=== PATIENT | male | born 1940 | race Caucasian/White ===

== ENCOUNTER 2017-12-23 10:00 | Emergency (ER) | payer MEDICARE ==
[2017-12-23 10:37] LABS: #Basophils 0.1 thou/uL (0.0-0.2); #Eosinphils 0.4 thou/uL (0.0-0.7); #Lymphocytes 0.9 thou/uL (1.20-3.40); #Monocytes 1.1 thou/uL (0.11-0.59); #Neutrophils 12.4 thou/uL (1.40-6.50); %Basophils 0.9 % (0.0-1.0); %Eosinophils 2.6 % (0.0-10.0); %Lymphocytes 6.1 % (21.0-51.0); %Monocytes 7.3 % (0.0-10.0); Hemoglobin 10.8 g/dL (14.0-18.0); Mean Corpuscular HGB CONC 33.9 g/dL (32.0-36.0); Mean Corpuscular Hemoglobin 30.1 pg (27.0-31.0); Mean Corpuscular Volume 88.7 fl (80.0-94.0); Mean Platelet Volume 6.6 fL (7.4-10.4); Platelet Count 194 thou/uL (130-400); RBC Distribution Width 12.8 % (11.5-14.5); Red Blood Cell (RBC) Count 3.58 mill/uL (4.70-6.10); White Blood Cell (WBC) Count 14.9 thou/uL (4.8-10.8)
[2017-12-23 10:45] LABS: PTT 27.7 SEC (22.9-36.1)
[2017-12-23 10:46] LABS: INR-International Normal Ratio 1.1
[2017-12-23 10:46] LABS: pH (venous) 7.39 (7.35-7.45)
[2017-12-23 10:48] LABS: Base Excess 0.2 mEq/L (-2 - +2)
[2017-12-23 10:49] LABS: Hemoglobin (Hb) 11.3 g/dL (12.6-17.4)
[2017-12-23 10:55] LABS: ALT (SGPT) 14 U/L (8-55); AST (SGOT) 11 U/L (5-34); Albumin 3.5 g/dL (3.4-4.8); Alkaline Phosphatase 57 U/L (40-150); Anion Gap 14 mmol/L (10-20); BUN (Urea Nitrogen) 31 mg/dL (8.4-25.7); Bilirubin, Total 0.6 mg/dL (0.2-1.2); Calc. Creatinine Clearance 0 mL/min (70-130); Calcium 9.5 mg/dL (7.8-10.44); Carbon Dioxide 22 mmol/L (23-31); Chloride 107 mmol/L (98-107); Estimated GFR-MDRD 43; Globulin 3.2 g/dL (2.4-3.5); Glucose 90 mg/dL (83-110); Magnesium 2.1 mg/dL (1.6-2.6); Potassium 4.4 mmol/L (3.5-5.1); Protein, Total 6.7 g/dL (5.8-8.1); Sodium 139 mmol/L (136-145)
[2017-12-23 10:57] LABS: CKMB 1.7 ng/mL (0-6.6); Troponin I 0.018 ng/mL (< 0.028)
[2017-12-23 11:00] LABS: D-Dimer Test 1.8 *mcg/mL (0.27-0.43)
[2017-12-23 11:59] LABS: Bilirubin Moderate (Negative); Blood, Urine Negative (Negative); Glucose, Urine (Dipstick) Negative (Negative); Leukocyte Negative (Negative); Nitrite Negative (Negative); Protein, Urine (Dipstick) Trace mg/dL (Neg-Trace)
[2017-12-23 12:00] LABS: Clarity Hazy (Clear)
[2017-12-23 12:06] LABS: Specific Gravity, Urine 1.026 (1.002-1.036)
[2017-12-23 12:08] LABS: Amphetamine Not Detected (NotDetected); Barbiturates Screen Not Detected (NotDetected); Benzodiazepine Screen Detected (NotDetected); Cocaine Metabolite Screen Not Detected (NotDetected); Methadone Not Detected (NotDetected); Methamphetamine Not Detected (NotDetected); Opiate Screen Not Detected (NotDetected); Oxycodone Screen Not Detected (NotDetected); Phencyclidine (PCP) Not Detected (NotDetected); THC/Cannabinoid Screen Not Detected (NotDetected); Tricyclic Screen Not Detected (NotDetected)
[2017-12-23 12:09] LABS: Medtox Control Line Valid? VALID (VALID)
--- NOTE | 2017-12-23 12:26 | CT ---
CT HEAD WITHOUT CONTRAST: Technique: Multiple axial tomograms were obtained through the head without IV enhancement. History: Fall with dizziness and metal status change. FINDINGS: Mild cortical volume loss. Moderate chronic ischemic white matter change. Sinuses and mastoids are ae rated. There is a mucous retention in the left maxillary sinus. No hemorrhage, mass, or infarct ident ified. IMPRESSION: Chronic changes noted as described. No evidence of acute hemorrhage. POS: [facility]
--- NOTE | 2017-12-23 12:32 | CT ---
CT CERVICAL SPINE WITH CORONAL AND SAGITTAL REFORMATIONS: HISTORY: Fall. Neck pain. FINDINGS: Degenerative changes are present in the cervical spine. There is fusion at the C2-C3 level. No acut e fracture is seen. There is minimal anterolisthesis of C5 over C6. There is calcification of the p osterior longitudinal ligament. POS: [facility]
--- NOTE | 2017-12-23 12:35 | RAD ---
RIGHT FEMUR TOTAL OF 3 VIEWS: HISTORY: Fall with injury to right lower extremity. FINDINGS: There is evidence of a fracture involving the greater trochanteric of the proximal right femur. I ca nnot exclude intertrochanteric extension through the base of the femoral neck. No other abnormality identified. IMPRESSION: Trochanteric fracture proximal right femur. POS: [facility]
--- NOTE | 2017-12-23 12:35 | RAD ---
AP PELVIS: Indication: Decreased range of motion of the right hip. Comparison: None. FINDINGS: There is suspicion for possible basicervical right femoral neck fracture. This is difficult to defini tely demonstrate. Would recommend dedicated right hip radiograph to evaluate this region. No addition al acute osseous abnormality is evident. IMPRESSION: Findings suspicious for right basicervical femoral neck fracture. Recommend a dedicated right hip rad iograph for further evaluation. No additional acute osseous abnormality is evident. There are scatter ed vascular calcifications seen within the soft tissues of the pelvis. POS: [facility]
--- NOTE | 2017-12-23 12:36 | RAD ---
RIGHT TIBIA AND FIBULA: History: Fall with injury to right lower extremity. FINDINGS/IMPRESSION: Mild degenerative change at knee and ankle. No acute fracture identified. POS: [facility]
--- NOTE | 2017-12-23 12:36 | RAD ---
RIGHT KNEE FOUR VIEWS: History: Fall with injury to right knee. FINDINGS: Mild degenerative change at the knee. No evidence of fracture. No evidence of joint effusion. IMPRESSION: No acute fracture identified. POS: [facility]
--- NOTE | 2017-12-23 12:37 | RAD ---
PORTABLE CHEST ONE VIEW: Date: 12-23-17 Time: 10:38 a.m. History: Hypoxia. FINDINGS/IMPRESSION: The heart is enlarged. Pulmonary interstitial markings are seen bilaterally. No pneumothoraces, lobar consolidation, or large effusions identified. POS: [facility]
== END 2017-12-23 18:36 | disposition short-term general hospital (02) ==
LOC: MADERS 10:00
DX: T40.4X1A Poisoning by other synthetic narcotics, accidental (unintentional), initial encounter (principal); S72.114A Nondisplaced fracture of greater trochanter of right femur, initial encounter for closed fracture; G30.9 Alzheimer's disease, unspecified; R09.02 Hypoxemia; Z79.82 Long term (current) use of aspirin; Z79.899 Other long term (current) drug therapy; W19.XXXA Unspecified fall, initial encounter
CPT/HCPCS: 51701; 70450; 71045; 72125; 72170; 80053; 80306; 81003; 82553; 82805; 83605; 83735; 83880; 84484; 85025; 85379; 85610; 85730; 87040; 87086; 93005; 94760

== ENCOUNTER 2018-01-05 14:05 | Inpatient (IN) | payer MEDICARE, OTHER ==
[2018-01-05 14:40] VITALS: BMI 28.5
[2018-01-05 16:46] LABS: #Basophils 0.1 thou/uL (0.0-0.2); #Eosinphils 0.5 thou/uL (0.0-0.7); #Lymphocytes 1.7 thou/uL (1.20-3.40); #Monocytes 0.7 thou/uL (0.11-0.59); #Neutrophils 7.7 thou/uL (1.40-6.50); %Basophils 1.3 % (0.0-1.0); %Eosinophils 4.3 % (0.0-10.0); %Lymphocytes 15.5 % (21.0-51.0); %Monocytes 6.6 % (0.0-10.0); %Neutrophils 72.2 % (42.0-75.0); Hemoglobin 11.1 g/dL (14.0-18.0); Mean Corpuscular HGB CONC 32.5 g/dL (32.0-36.0); Mean Corpuscular Hemoglobin 29.4 pg (27.0-31.0); Mean Corpuscular Volume 90.4 fl (80.0-94.0); Mean Platelet Volume 6.4 fL (7.4-10.4); Platelet Count 315 thou/uL (130-400); RBC Distribution Width 13.2 % (11.5-14.5); Red Blood Cell (RBC) Count 3.78 mill/uL (4.70-6.10); White Blood Cell (WBC) Count 10.6 thou/uL (4.8-10.8)
[2018-01-05 17:01] LABS: ALT (SGPT) 28 U/L (8-55); AST (SGOT) 13 U/L (5-34); Albumin 3.5 g/dL (3.4-4.8); Alkaline Phosphatase 89 U/L (40-150); Anion Gap 14 mmol/L (10-20); BUN (Urea Nitrogen) 15 mg/dL (8.4-25.7); Bilirubin, Total 0.6 mg/dL (0.2-1.2); Calc. Creatinine Clearance 68 mL/min (70-130); Calcium 8.9 mg/dL (7.8-10.44); Carbon Dioxide 22 mmol/L (23-31); Chloride 107 mmol/L (98-107); Estimated GFR-MDRD 63; Globulin 3.2 g/dL (2.4-3.5); Glucose 90 mg/dL (83-110); Potassium 4.3 mmol/L (3.5-5.1); Protein, Total 6.7 g/dL (5.8-8.1); Sodium 139 mmol/L (136-145)
[2018-01-05] MEDS ORDERED: Diazepam 5 MG TAB PO PRN (17:44)
[2018-01-05] MEDS ORDERED: Thiamine HCl 200 MG/2 ML VIAL IM SCH (17:45)
[2018-01-05] MEDS ORDERED: Diazepam 5 MG TAB PO SCH (17:45)
--- NOTE | 2018-01-05 17:57 | RAD ---
RIGHT HIP TWO VIEWS: 01/05/18 HISTORY: 77-year-old male with history of fracture followup. COMPARISON: 12/23/17. FINDINGS: There is a displaced fracture of the greater trochanter of the right hip with some comminution. There appears to be more foreshortening and displacement when compared to the prior 12/23/17 study. IMPRESSION: Comminuted fracture greater trochanter of the right hip with more displacement than when compared to the prior study of 12/23/17. POS: [facility]
--- NOTE | 2018-01-05 17:59 | RAD ---
LEFT HIP TWO VIEWS: 01/05/18 HISTORY: 77-year-old male with left hip pain. COMPARISON: AP pelvis 12/23/17. There are some enthesophytic changes of the greater and lesser trochanters. No acute fracture or disl ocation. Left hip joint arthrosis. IMPRESSION: Degenerative changes without acute fracture or dislocation. POS: [facility]
--- NOTE | 2018-01-05 18:04 | RAD ---
FRONTAL RADIOGRAPH PELVIS 01/05/18 COMPARISON: 12/23/17. HISTORY: Fracture undergoing followup examination. FINDINGS: There is a comminuted obliquely oriented fracture involving the greater trochanter on the right. The largest fracture fragment demonstrates proximal distraction of approximately 8-9 mm which appears new . This is likely associated with muscular insertion. No widening of the sacroiliac joints of the pubi c symphysis. Neither femoral head appears dislocated. IMPRESSION: Comminuted fracture of the greater trochanter on the right with mild new proximal displacement. POS: [facility]
[2018-01-05] MEDS: traMADol HCl 50 MG TAB PO PRN (18:08)
[2018-01-05] MEDS: ALPRAZolam 0.25 MG TAB PO PRN (19:38)
[2018-01-05] MEDS: Citalopram 20 MG TAB PO SCH (19:38)
[2018-01-05] MEDS: Terazosin HCl 5 MG CAP PO SCH (19:39)
[2018-01-05] MEDS: Simvastatin 5 MG TAB PO SCH (19:39)
[2018-01-05 20:49] LABS: Bilirubin Small (Negative); Blood, Urine Negative (Negative); Clarity Clear (Clear); Glucose, Urine (Dipstick) Negative (Negative); Leukocyte Negative (Negative); Nitrite Negative (Negative); Protein, Urine (Dipstick) Trace mg/dL (Neg-Trace); Specific Gravity, Urine 1.015 (1.005-1.030); Urobilinogen > or = 8.0 mg/dL (0.2-1.0); pH, Urine 7.5 (5.0-9.0)
[2018-01-05] MEDS ORDERED: traMADol HCl 50 MG TAB PO SCH (21:00)
[2018-01-05] MEDS ORDERED: NAPROXEN SODIUM 440 MG PO SCH (21:00)
[2018-01-05 21:16] LABS: Bacteria/HPF None Seen HPF (None Seen); RBC/HPF 0-3 HPF (0-3); WBC/HPF 0-3 HPF (0-3)
[2018-01-05] MEDS: Acetaminophen/Codeine 30-300mg Tablet PO PRN (22:52)
[2018-01-06] MEDS ORDERED: Diazepam 5 MG TAB PO PRN
[2018-01-06] MEDS: cloNIDine 0.1 MG TAB PO PRN ×2 (00:06→20:10)
--- NOTE | 2018-01-06 00:07 | HP ---
DATE OF ADMISSION: 01/05/2018 ATTENDING: Dr. Finn. PRIMARY CARE PHYSICIAN: [place], [place]. REASON FOR ADMISSION: Persistent hip pain, deconditioning, general weakness. HISTORY OF PRESENT ILLNESS: Mr. Das is a 77-year-old male with multiple chronic medical conditions including dementia with behavioral disturbances, anxiety, BPH, dyslipidemia and chronic alcohol use. Patient was initially reported by the family to have an unwitnessed fall at home on . At that time, he was complaining of acute right low back/hip pain. Was initially seen in clinic that subsequently referred to [place] [facility] secondary to reported unintentional intake of his medications set for 4 days. Patient was complaining of right hip pain that he cannot bear weight on the right leg and is requiring significant assistance to ambulate after he had the fall. No other neurologic deficits reported. His vital signs at that time was initially with low blood pressure. Otherwise, remains awake and alert. Several x-rays including CT scans were obtained in the ER including cervical spine CT and spine with the brain, which were unremarkable except for the x-ray of the right femur, which was initially interpreted with trochanteric fracture of the proximal right femur involving the right greater trochanteric. There was also a finding that is suspicious of the right base cervical femoral neck fracture. Recommending a dedicated right hip radiograph for further evaluation. Patient was sent to [facility] in [place] where he was found to have comminuted fracture of the greater trochanteric without intertrochanteric extension, 5 mm proximal migration as well as myotendinous hemorrhage along the gluteus medius and minimus muscles. At that time, Dr Baez was contacted patient was deemed not a good candidate for surgical managemen. Ortho then recommended inpatient rehabilitation at [facility], but patient declined, went home AMA. Family reports that, by the time he got out of the car at home, the patient fell again ending up on the floor when seen by the family. At that time, there was no significant head trauma, shoulder pain, or cervical spine pain reported , but patient reports persistent right hip pain and right lower back pain thereafter. Patient stayed home for the rest of the last couple of weeks. Family reported that patient continues to complain of pain. could harly walk or get up and out of chair. He trying to walk using a walker. Patient was persistently asking for tramadol 3 times a day and naproxen 2 tablets 4 times a day, almost in a scheduled basis. Thus, family brought the patient back to the clinic today for further evaluation and possible skilled rehabilitation in [facility]. Family consisting of his spouse and son reported that they already had a long talk with the patient regarding this, and this time, the patient finally agreed to consider rehab, but not in [place] but only in [place]. Patient was then subsequently admitted to [facility] for acute pain management, deconditioning, and general weakness, status post fall. PAST MEDICAL HISTORY: Alzheimer's disease with behavioral disturbances, depression, anxiety, dyslipidemia, BPH, hypertension, and history of chronic alcoholism. PAST SURGICAL HISTORY: Bilateral cataract removal. Spouse reports some bone removal from the hip in the past, unknown or unconfirmed procedure. SOCIAL HISTORY: He has a significant history of chronic alcoholism. Patient has slowed down with his overall alcoholic intake lately since he has been having poor memory after the last hospitalization in 2014. Admits to drinking 1 -2 beers a day. Denies history of significant withdrawal syndrome. Denies tobacco use. Denies illicit drug use. ALLERGIES: No known medication allergies. HOME MEDICATIONS: Alprazolam 0.25 mg p.o. b.i.d. p.r.n., aspirin 325 mg p.o. daily, vitamin D3 at 1000 mg p.o. daily, Celexa 40 mg q.p.m., cyanocobalamin 1000 mcg p.o. daily, donepezil 10 mg p.o. daily, finasteride 5 mg p.o. daily, fish oil 1000 mg p.o. daily, memantine 10 mg p.o. b.i.d., multivitamins 1 tablet daily, simvastatin 5 mg p.o. at bedtime, terazosin 5 mg p.o. at bedtime, thiamine 100 mg p.o. daily, and tramadol 100 mg p.o. t.i.d. FAMILY HISTORY: Noncontributory. REVIEW OF SYSTEMS: General: Denies fever or chills. Reports general weakness and fatigue. HEENT: No acute visual changes or hearing changes. Respiratory: No shortness of breath or wheezing. No chronic cough or sputum production. Cardiac: No chest pain, leg edema, dyspnea on exertion, paroxysmal nocturnal dyspnea. Syncopal episode. Genitourinary: No dysuria or hematuria. Family reports increased frequency and nocturia lately. No gross hematuria, no incontinence. Positive for BPH. Musculoskeletal: Reports joint pain as per HPI. Denies joint swelling, redness, effusion. Neuro: No focal numbness, focal weakness, loss of consciousness, fixed tremors or seizures. Psych: Reports anxiety, depressive symptoms, denies hallucinations, insomnia. Skin: No rashes, no lesions, no pruritus, no jaundice. PHYSICAL EXAMINATION: VITAL SIGNS: Blood pressure 117/84, temperature 99.2, pulse 75, respirations 18 , O2 sats 90% on room air. GENERAL: The patient is awake, alert, oriented x2, a little off of date. Comfortable, not in acute distress. HEENT: Normocephalic, atraumatic. PERRL, Intact EOM. Anicteric sclerae. Oral mucosa is moist. No oral lesions. Tongue in the midline. No tremors. NECK: Supple. No LAD, no JVD, no bruit. Full range of motion, no swelling, no erythema. CHEST: Normal excursion, nonlabored breathing, no intercostal retractions. LUNGS: Good air movement. Clear to auscultation bilaterally. No rales, no crackles, no wheezing, no rhonchi. ABDOMEN: Obese, soft, normoactive bowel sounds, nondistended, nontender, no rebound, no guarding. Negative CVA tenderness bilaterally. EXTREMITIES: No edema, no cyanosis. BACK: No gross deformity. No scoliosis noted. Reports direct tenderness in the right hip/pelvis on palpation, no swelling, no erythema. EXTREMITIES: No edema, no cyanosis. Moves all extremities symmetrically. DTRs Nonfocal. DTRs 2+. Gait unsteady. Uses rolling walker. Reports pain on the right side upon weightbearing. PSYCHIATRIC: Appears calm with appropriate demeanor and affect. Co-operative, pleasant. ASSESSMENT: 1. Persistent right hip pain, status post fall. 2. Comminuted right intertrochanteric nondisplaced fracture, initially reported on 12/23/2017, status post fall at home. 3. Alzheimer's dementia with behavioral disturbances. 4. Hypertension. 5. Depression/anxiety. 6. Urinary frequency. 7. Benign prostatic hypertrophy without lower urinary tract obstructive symptoms. 8. General weakness, deconditioning. The patient was admitted to [facility] for pain management and possible rehabilitation secondary to deconditioning and general weakness noted after he had a fall. The patient was initially seen in the ER and was deemed a good candidate for inpatient rehabilitation. However, the patient declined. Patient now agrees to undergo rehabilitation, but only in [facility]. Routine labs or admitting lab works were ordered. We will continue current medications as modified per list. We will discontinue non-steroidal antiinflammatory drugs and start on Tylenol #3. We will continue tramadol on a p.r.n. basis. X-rays ordered as outpatient, unfortunately, was not done. We will proceed with a repeat x-ray of the hip and pelvis. Further recommendations depending on the results. We will hold off therapy evaluation until imaging study results are available. We will consider further ortho consult depending on the x-ray results. Deep venous thrombosis prophylaxis with compression stockings. Further recommendations depending on the hospital course. CODE STATUS: Reports FULL CODE. Family concurs. MTDD
[2018-01-06] MEDS: ALPRAZolam 0.25 MG TAB PO PRN ×2 (04:24→18:11)
[2018-01-06] MEDS: Folic Acid 1 MG TAB PO SCH (08:51)
[2018-01-06] MEDS: Fish Oil 1,000 MG CAP PO SCH (08:51)
[2018-01-06] MEDS: Aspirin 325 mg Enteric Coated Tablet PO SCH (08:52)
[2018-01-06] MEDS: Finasteride 5 MG TAB PO SCH (08:52)
[2018-01-06] MEDS: Donepezil HCl 10 MG TAB PO SCH (08:52)
[2018-01-06] MEDS: Multivit, Therapeutic 1 TAB PO SCH (08:52)
[2018-01-06] MEDS: Cyanocobalamin (Vitamin B-12) 1,000 MCG TAB PO SCH (08:52)
[2018-01-06] MEDS ORDERED: CRANBERRY PO SCH (09:00)
[2018-01-06] MEDS ORDERED: ASCORBIC ACID PO SCH (09:00)
[2018-01-06] MEDS ORDERED: Magnesium Oxide 400 MG TAB PO SCH (09:00)
[2018-01-06] MEDS: traMADol HCl 50 MG TAB PO PRN (15:21)
[2018-01-06] MEDS: Acetaminophen/Codeine 30-300mg Tablet PO PRN (20:08)
[2018-01-06] MEDS: Terazosin HCl 5 MG CAP PO SCH (20:09)
[2018-01-06] MEDS: Citalopram 20 MG TAB PO SCH (20:09)
[2018-01-06] MEDS: Simvastatin 5 MG TAB PO SCH (20:09)
[2018-01-07] MEDS: Fish Oil 1,000 MG CAP PO SCH (08:30)
[2018-01-07] MEDS: Finasteride 5 MG TAB PO SCH (08:30)
[2018-01-07] MEDS: Folic Acid 1 MG TAB PO SCH (08:30)
[2018-01-07] MEDS: Aspirin 325 mg Enteric Coated Tablet PO SCH (08:30)
[2018-01-07] MEDS: Donepezil HCl 10 MG TAB PO SCH (08:30)
[2018-01-07] MEDS: Cyanocobalamin (Vitamin B-12) 1,000 MCG TAB PO SCH (08:30)
[2018-01-07] MEDS: Multivit, Therapeutic 1 TAB PO SCH (08:30)
[2018-01-07] MEDS: ALPRAZolam 0.25 MG TAB PO PRN ×2 (11:46→22:23)
[2018-01-07] MEDS: Citalopram 20 MG TAB PO SCH (20:06)
[2018-01-07] MEDS: Simvastatin 5 MG TAB PO SCH (20:07)
[2018-01-07] MEDS: Terazosin HCl 5 MG CAP PO SCH (20:07)
[2018-01-07] MEDS: Acetaminophen/Codeine 30-300mg Tablet PO PRN (20:08)
[2018-01-08] MEDS: cloNIDine 0.1 MG TAB PO PRN (04:10)
[2018-01-08 08:31] VITALS: BP 120/59; TEMP 97.1
[2018-01-08] MEDS: Cyanocobalamin (Vitamin B-12) 1,000 MCG TAB PO SCH (08:58)
[2018-01-08] MEDS: Aspirin 325 mg Enteric Coated Tablet PO SCH (08:58)
[2018-01-08] MEDS: Finasteride 5 MG TAB PO SCH (08:59)
[2018-01-08] MEDS: Fish Oil 1,000 MG CAP PO SCH (08:59)
[2018-01-08] MEDS: Multivit, Therapeutic 1 TAB PO SCH (08:59)
[2018-01-08] MEDS: Folic Acid 1 MG TAB PO SCH (08:59)
[2018-01-08] MEDS: Donepezil HCl 10 MG TAB PO SCH (08:59)
[2018-01-08] MEDS: Acetaminophen/Codeine 30-300mg Tablet PO PRN (10:05)
--- NOTE | 2018-01-08 21:06 | DIS ---
DATE OF ADMISSION: 01/05/2018 DATE OF DISCHARGE: 01/08/2018 ATTENDING: Dr. Finn, PCP in [place] in [place]. REASON FOR ADMISSION: Persistent hip pain, deconditioning, general weakness status post fall at home. FINAL DIAGNOSES: 1. Comminuted fracture of the greater trochanteric on the right with mild new proximal displacement. 2. Status post fall at home. 3. Acute right hip pain, persistent secondary to fall. 4. Physical deconditioning. 5. General weakness. 6. Alzheimer's dementia. SECONDARY DIAGNOSES: Hypertension, chronic alcohol use, BPH, depression and anxiety, dyslipidemia. CODE STATUS: FULL CODE. DISPOSITION: Home. CONDITION ON DISCHARGE: Stable. MEDICATIONS: Tylenol #3 one tab q.4 hours p.r.n., alprazolam 0.25 mg p.o. b.i.d. p.r.n., aspirin 325 mg p.o. daily, vitamin D3 1000 units p.o. daily, citalopram 40 mg p.o. q.p.m., clonidine 0.1 mg p.o. q.6 p.r.n., cyanocobalamin 1000 mcg p.o. daily, donepezil 10 mg p.o. daily, finasteride 5 mg p.o. daily, fish oil 1000 mg p.o. daily, folic acid 1 mg p.o. daily, memantine 10 mg p.o. b.i.d., multivitamins 1 tab daily, simvastatin 5 mg p.o. at bedtime, terazosin 5 mg p.o. at bedtime, thiamine 100 mg p.o. daily, tramadol 100 mg p.o. t.i.d. p.r.n. Discharged home with family per request. DIET: Low salt, low fat. ACTIVITIES: To use rolling walker at all times. Patient needs 24/7 supervision secondary to dementia. Fall precautions. FOLLOW UP: With Dr. Finn in 1-2 weeks or sooner with concerns. Follow up with [place] PCP as previously scheduled. ER warnings. HISTORY OF PRESENT ILLNESS AND HOSPITAL COURSE: Mr. Das is a 77-year-old male with significant history of Alzheimer's dementia associated with behavioral disturbances, depression, anxiety, hypertension, BPH, and chronic alcohol use. The patient had an unwitnessed fall at home on 2017. He was found to have a comminuted closed trochanteric fracture of the proximal right femur involving the right greater trochanteric by xray And CT scan of the hip and pelvis. He was deemed not a surgical candidate per Ortho. Recommendations to proceed with inpatient rehabilitation in [facility] from the ER. The patient went AMA and went back to home instead. He was treated with tramadol and naproxen at home, but continued to complain of persistent right hip pain. Pain is best noted with weightbearing and when walking or changing positions. He was reported by the family to being deconditioned and got frustrated because he cannot walk very much and pain is not completely controlled. After the family had a long talk with the patient, the patient then consulted back and seen in the clinic 01/05/2018. Patient reports he could not walk much as he can due to pain. He uses the rolling walker to ambulate. After further discussion with the patient and family consisting of his and son, Tcaho, the patient then agreed to have rehabilitation in [facility]. Repeat x-ray of the pelvis upon admission showed comminuted fracture of the greater trochanteric on the right with mild new proximal displacement. Telephone consult was made with Dr. Baez who initially had seen the x-rays from the ER upon initial presentation. Dr. Baez believed x-ray findings is not significant and does not require surgical management. Ortho recommended conservative management only and weightbearing as tolerated. The patient underwent rehabilitation in [facility] after cleared by Ortho. Rehab course was not completed as patient has been continuously complaining that nobody works with him and we are not doing anything for him in the hospital. The patient's stayed with the patient in the room all the time 02/03 with patient and helped continuously reminding the patient of what the therapy and the nurses are doing with him in the hospital. The patient continued to have confusion with poor memory. He has a very poor short-term memory that affected his decision to stay for rehabilitation. After a lengthy discussion with the family, decided to go home on 01/08/2018 with home health. DME was arranged prior to discharge per request. The patient will follow up in the clinic and highly recommended to have a series of x-rays to confirm resolution of the fracture. Of note, during this hospitalization, patient did not manifest significant withdrawal symptoms except for episodes of BP elevation usually at night that requires p.r.n. clonidine treatment. Vital signs prior to discharge; blood pressure 148/70, temperature 98.2, heart rate 57, respiration 18, O2 saturation 97% on room air, weight 198 pounds and 9 ounces. Time spent in this discharge in examining the patient and coordinating care is 32 minutes. [facility]
== END 2018-01-08 10:10 | disposition home or self-care (01) | DRG 560 ==
LOC: MADMS 14:05
PROVIDERS: ADMIT Family Medicine; ATTEND Family Medicine
DX: S72.144D Nondisplaced intertrochanteric fracture of right femur, subsequent encounter for closed fracture with routine healing (principal); F02.81 Dementia in other diseases classified elsewhere, unspecified severity, with behavioral disturbance; F41.9 Anxiety disorder, unspecified; N40.0 Benign prostatic hyperplasia without lower urinary tract symptoms; E78.5 Hyperlipidemia, unspecified; G30.9 Alzheimer's disease, unspecified; F32.9 Major depressive disorder, single episode, unspecified; F10.20 Alcohol dependence, uncomplicated; R35.0 Frequency of micturition; J44.9 Chronic obstructive pulmonary disease, unspecified; R09.02 Hypoxemia; R26.81 Unsteadiness on feet; I11.0 Hypertensive heart disease with heart failure; I50.9 Heart failure, unspecified
CPT/HCPCS: 36415; 72170; 80053; 81001; 85025; G8987-GO-CK; G8988-GO-CH

== ENCOUNTER 2020-01-30 15:40 | Inpatient (IN) | payer MEDICARE, OTHER ==
[2020-01-30] MEDS ORDERED: traMADol HCl 50 MG TAB PO PRN (17:20)
[2020-01-30] MEDS: Acetaminophen 500 MG TAB PO SCH (18:12)
[2020-01-30] MEDS: ALPRAZolam 0.25 MG TAB PO PRN (18:13)
[2020-01-30] MEDS: Terazosin HCl 5 MG CAP PO SCH (20:45)
[2020-01-30] MEDS: Simvastatin 5 MG TAB PO SCH (20:45)
[2020-01-30] MEDS: Aspirin 325 MG TAB PO SCH (20:45)
[2020-01-31] MEDS: Acetaminophen 500 MG TAB PO SCH ×4 (01:05→17:14)
[2020-01-31] MEDS: ALPRAZolam 0.25 MG TAB PO PRN ×2 (05:35→21:35)
[2020-01-31 05:53] LABS: #Basophils 0.2 thou/uL (0.0-0.2); #Eosinphils 0.8 thou/uL (0.0-0.7); #Lymphocytes 1.6 thou/uL (1.20-3.40); #Monocytes 0.8 thou/uL (0.11-0.59); #Neutrophils 9.1 thou/uL (1.40-6.50); %Basophils 1.4 % (0.0-1.0); %Eosinophils 6.2 % (0.0-10.0); %Lymphocytes 12.5 % (21.0-51.0); %Monocytes 6.4 % (0.0-10.0); %Neutrophils 73.6 % (42.0-75.0); Hemoglobin 7.5 g/dL (14.0-18.0); Mean Corpuscular HGB CONC 31.8 g/dL (32.0-36.0); Mean Corpuscular Hemoglobin 30.5 pg (27.0-31.0); Mean Corpuscular Volume 95.8 fL (78.0-98.0); Mean Platelet Volume 7.2 fL (7.4-10.4); Platelet Count 259 thou/uL (130-400); RBC Distribution Width 13.2 % (11.5-14.5); Red Blood Cell (RBC) Count 2.46 mill/uL (4.70-6.10); White Blood Cell (WBC) Count 12.4 thou/uL (4.8-10.8)
[2020-01-31 06:03] LABS: Anion Gap 12 mmol/L (10-20); BUN (Urea Nitrogen) 23 mg/dL (8.4-25.7); Calc. Creatinine Clearance 83 mL/min (70-130); Carbon Dioxide 25 mmol/L (23-31); Chloride 115 mmol/L (98-107); Estimated GFR-MDRD 88; Glucose 93 mg/dL (83-110); Potassium 3.9 mmol/L (3.5-5.1); Sodium 148 mmol/L (136-145)
[2020-01-31] MEDS: Donepezil HCl 10 MG TAB PO SCH (08:42)
[2020-01-31] MEDS: traMADol HCl 50 MG TAB PO PRN (08:43)
[2020-01-31] MEDS: Citalopram 20 MG TAB PO SCH (08:44)
[2020-01-31] MEDS: Thiamine 100 MG TAB PO SCH (08:44)
[2020-01-31] MEDS: Multivit, Therapeutic 1 TAB PO SCH (08:45)
[2020-01-31] MEDS: risperiDONE 0.5 MG TAB PO SCH (08:45)
[2020-01-31] MEDS: Cyanocobalamin (Vitamin B-12) 1,000 MCG TAB PO SCH (08:45)
[2020-01-31] MEDS: Polyethylene Glycol 3350 17 GM Packet PO SCH (08:45)
[2020-01-31] MEDS: Finasteride 5 MG TAB PO SCH (08:45)
[2020-01-31] MEDS ORDERED: CRANBERRY FRUIT 4200 MG PO SCH (09:00)
--- NOTE | 2020-01-31 20:00 | HP ---
ORTHOPEDIC PHYSICIAN: Irving Lisa MD HISTORY OF PRESENT ILLNESS: Mr. Das is an 79-year-old male with significant history of dementia, unsteadiness of gait, and history of falls at home secondary to confusion and poor safety awareness. The patient had another fall at home on 01/26/2020, and was sent to [place] [facility] for further evaluation. The patient's family reported to the EMS that they found the patient to the ground last night. They are unsure of the cause of the fall. They reported trying to get him up last night, but were unable to. Subsequently, they allowed him to sleep on the floor overnight. The patient was reported by the family that over the past week, the patient's condition has significantly declined. The patient has a lot of tremors, which has been chronic and very confused, uncooperative for the most parts. Upon further evaluation in the ER, the patient found to have fracture of left intertrochanteric femur. The patient had underwent trochanteric fixation nail, left intertrochanteric femur, which was done by Dr. Lisa. The patient has had a history of TIA in 2014 and this was ruled out. His CT of the brain showed no evidence of acute intracranial process. There was no significant neurologic deficits noted over the course. Baseline lab showed WBC of 7.8, hemoglobin of 8.7, hematocrit 25.6, and platelet of 217 on 01/26/2020. Postoperatively, the patient's hemoglobin stayed at 7.5 to 7.8. Prior to discharge on 01/29/2020, his hemoglobin has stabilized at 7.5 and hematocrit of 23.4 with WBC of 12.2. The patient was subsequently transferred to [facility] on 01/30/2020 for purposes of skilled rehabilitation. When he was admitted on 01/30/2020, the patient was very confused. He was screaming and fighting with the staff. He declined to be helped and wanting to get up and out of bed with very poor safety awareness. His son, Tacho Das, was present at the time of admission. Son reports that the patient has been doing fine in the hospital, but with intermittent confusion and behavioral disturbances like this, mostly notable in late afternoon or evening. Otherwise, they were not told of any other behavioral disturbances. We were able to settle down the patient with reorientation and cuing. He finally settled down and cooperated. His current diet was downgraded to pureed with nectar thickened from the hospital prior to discharge. He was apparently evaluated by Speech Therapy for swallowing issues and we will continue the current diet as ordered. This was discussed with son, who is unaware of this new symptoms, but concurs with the plan. PAST MEDICAL HISTORY: Dementia, Alzheimer's late onset, history of TIA, hypertension, history of previous chronic alcoholic use, anxiety, BPH, hyperlipidemia, and depression. History of unsteadiness and falls at home. PAST SURGICAL HISTORY: Hip surgery. SOCIAL HISTORY: The patient lives at home with his . She and her family help to take care of him with his son. He is supposed to walk with a walker, but the patient refuses for the most part. Per son, the patient has not been drinking alcohol lately. ALLERGIES: NO KNOWN ALLERGIES. CURRENT MEDICATIONS: 1. Acetaminophen. 2. Citalopram 40 mg p.o. daily. 3. Aspirin 325 mg p.o. at bedtime. 4. Cyanocobalamin 1000 mg p.o. daily. 5. Donepezil 10 mg p.o. daily. 6. Finasteride 5 mg p.o. daily. 7. Simvastatin 5 mg p.o. at bedtime. 8. Terazosin 5 mg p.o. at bedtime. 9. Thiamine 100 mg p.o. daily. 10. Tramadol 50 mg q.6 hours 1 to 2 p.r.n. REVIEW OF SYSTEMS: Unobtainable secondary to cognitive impairment. Son reports history of confusion, visual and auditory hallucinations lately at home. PHYSICAL EXAMINATION: VITAL SIGNS: Blood pressure 186/80, temperature 98.3, pulse 61, respiration 18 , and O2 sats 95% on room air. GENERAL: The patient is lying in the portion of the bed with the head resting on the bed rail, half naked, just wearing his diaper, as he refuses to be dressed up. He is not in distress. No signs of discomfort. HEENT: Normocephalic and atraumatic. PERRL. Intact EOM. Anicteric sclerae. Oral mucosa is moist. NECK: Supple. No LAD. CHEST: Normal excursion. Nonlabored breathing. LUNGS: Clear to auscultation bilaterally. CARDIAC: RRR. Normal S1 and S2. ABDOMEN: Flat, soft. Normoactive bowel sounds. Nondistended and nontender. Negative CVA tenderness bilaterally. EXTREMITIES: No edema. No cyanosis. SKIN: Postoperative site in the left lateral thigh is intact. Jany in place. No denice-wound erythema. No denice-wound edema. No drainage. The surrounding skin more than a centimeter has bruises on the lateral thigh. NEURO: Globally confused, talkative. Spontaneous speech and unsteady gait. Moves extremities symmetrically. PSYCH: Appears disheveled, uncooperative with us for the most part, but able to settle down subsequently and cooperated some. He was happy when transferred to a recliner. ASSESSMENT: 1. Status post fall, unknown etiology with prolonged down time. 2. Left intertrochanteric femur fracture, fall sequelae. 3. Left trochanteric f fixation nail on 01/27/2020. 4. Anemia of acute postoperative blood loss. 5. Alzheimer's, late onset. 6. 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 7. Depression and anxiety. 8. Dysphagia. 9. Hypertension. 10. Dyslipidemia. 11.Benign prostatic hyperplasia. 12. Unsteady gait. 13. At risk for fall, history of falling. 14. History of chronic alcohol use. PLAN: 1. The patient is admitted to [facility] for rehab. Refer to PT, OT , and Speech Therapy. 2. We will continue current medications, pain management. 3. Supportive medical management and close monitoring of the patient's behavior. He is definitely at risk for falling secondary to very poor safety awareness and confusion. 4. Lengthy discussion with the family as represented by his son, Tacho Das. Advance care planning was discussed. Per son, the patient is fFULL CODE We will also discuss possibility of disposition to a long-term care facility, dementia facility. Son is open to this and will discuss this further with his mother/patient's . In the meantime, we will continue rehab and SNF. Barriers to rehab includes confusion/cognitive impairment. ESTIMATED LENGTH OF STAY: 3 to 4 weeks. Job ID: [id number] MTDD
[2020-01-31] MEDS: Aspirin 325 MG TAB PO SCH (21:35)
[2020-01-31] MEDS: Simvastatin 5 MG TAB PO SCH (21:35)
[2020-01-31] MEDS: Terazosin HCl 5 MG CAP PO SCH (21:35)
[2020-02-01] MEDS: Acetaminophen 500 MG TAB PO SCH ×4 (00:51→17:06)
[2020-02-01] MEDS: Cyanocobalamin (Vitamin B-12) 1,000 MCG TAB PO SCH (08:14)
[2020-02-01] MEDS: Multivit, Therapeutic 1 TAB PO SCH (08:14)
[2020-02-01] MEDS: Finasteride 5 MG TAB PO SCH (08:14)
[2020-02-01] MEDS: Citalopram 20 MG TAB PO SCH (08:14)
[2020-02-01] MEDS: Donepezil HCl 10 MG TAB PO SCH (08:14)
[2020-02-01] MEDS: Thiamine 100 MG TAB PO SCH (08:14)
[2020-02-01] MEDS: Polyethylene Glycol 3350 17 GM Packet PO SCH (08:15)
[2020-02-01] MEDS: risperiDONE 0.5 MG TAB PO SCH (08:15)
[2020-02-01] MEDS: Simvastatin 5 MG TAB PO SCH (21:44)
[2020-02-01] MEDS: Terazosin HCl 5 MG CAP PO SCH (21:44)
[2020-02-01] MEDS: Aspirin 325 MG TAB PO SCH (21:44)
[2020-02-02] MEDS: ALPRAZolam 0.25 MG TAB PO PRN ×2 (00:18→17:14)
[2020-02-02] MEDS: Acetaminophen 500 MG TAB PO SCH ×4 (00:19→17:14)
[2020-02-02] MEDS: Citalopram 20 MG TAB PO SCH (08:27)
[2020-02-02] MEDS: risperiDONE 0.5 MG TAB PO SCH (08:28)
[2020-02-02] MEDS: Thiamine 100 MG TAB PO SCH (08:28)
[2020-02-02] MEDS: Cyanocobalamin (Vitamin B-12) 1,000 MCG TAB PO SCH (08:28)
[2020-02-02] MEDS: Polyethylene Glycol 3350 17 GM Packet PO SCH (08:28)
[2020-02-02] MEDS: Donepezil HCl 10 MG TAB PO SCH (08:28)
[2020-02-02] MEDS: Finasteride 5 MG TAB PO SCH (08:28)
[2020-02-02] MEDS: Multivit, Therapeutic 1 TAB PO SCH (08:28)
[2020-02-02] MEDS: Aspirin 325 MG TAB PO SCH (20:48)
[2020-02-02] MEDS: Simvastatin 5 MG TAB PO SCH (20:49)
[2020-02-02] MEDS: Terazosin HCl 5 MG CAP PO SCH (20:49)
[2020-02-03] MEDS: Acetaminophen 500 MG TAB PO SCH ×4 (00:08→17:59)
[2020-02-03] MEDS: Polyethylene Glycol 3350 17 GM Packet PO SCH (08:36)
[2020-02-03] MEDS: Citalopram 20 MG TAB PO SCH (08:36)
[2020-02-03] MEDS: risperiDONE 0.5 MG TAB PO SCH (08:37)
[2020-02-03] MEDS: Thiamine 100 MG TAB PO SCH (08:37)
[2020-02-03] MEDS: Cyanocobalamin (Vitamin B-12) 1,000 MCG TAB PO SCH (08:37)
[2020-02-03] MEDS: Multivit, Therapeutic 1 TAB PO SCH (08:37)
[2020-02-03] MEDS: Donepezil HCl 10 MG TAB PO SCH (08:40)
[2020-02-03] MEDS: Finasteride 5 MG TAB PO SCH (08:41)
[2020-02-03] MEDS: ALPRAZolam 0.25 MG TAB PO PRN (15:20)
[2020-02-03] MEDS ORDERED: Ferrous Sulfate 325 MG TAB PO SCH (18:30)
[2020-02-03] MEDS: Terazosin HCl 5 MG CAP PO SCH (20:34)
[2020-02-03] MEDS: Simvastatin 5 MG TAB PO SCH (20:35)
[2020-02-03] MEDS: Aspirin 325 MG TAB PO SCH (20:36)
[2020-02-04] MEDS: Acetaminophen 500 MG TAB PO SCH ×5 (00:32→23:34)
[2020-02-04] MEDS: Citalopram 20 MG TAB PO SCH (09:07)
[2020-02-04] MEDS: risperiDONE 0.5 MG TAB PO SCH (09:07)
[2020-02-04] MEDS: Ferrous Sulfate 325 MG TAB PO SCH ×2 (09:07→17:02)
[2020-02-04] MEDS: Finasteride 5 MG TAB PO SCH (09:07)
[2020-02-04] MEDS: Thiamine 100 MG TAB PO SCH (09:07)
[2020-02-04] MEDS: Donepezil HCl 10 MG TAB PO SCH (09:08)
[2020-02-04] MEDS: Cyanocobalamin (Vitamin B-12) 1,000 MCG TAB PO SCH (09:08)
[2020-02-04] MEDS: Multivit, Therapeutic 1 TAB PO SCH (09:09)
[2020-02-04] MEDS: Polyethylene Glycol 3350 17 GM Packet PO SCH (09:09)
[2020-02-04] MEDS: traMADol HCl 50 MG TAB PO PRN (09:11)
[2020-02-04] MEDS: Aspirin 325 MG TAB PO SCH (21:04)
[2020-02-04] MEDS: Terazosin HCl 5 MG CAP PO SCH (21:04)
[2020-02-04] MEDS: Simvastatin 5 MG TAB PO SCH (21:05)
[2020-02-05] MEDS: Acetaminophen 500 MG TAB PO SCH ×3 (05:49→16:59)
[2020-02-05] MEDS: Polyethylene Glycol 3350 17 GM Packet PO SCH (08:20)
[2020-02-05] MEDS: Cyanocobalamin (Vitamin B-12) 1,000 MCG TAB PO SCH (08:21)
[2020-02-05] MEDS: Finasteride 5 MG TAB PO SCH (08:21)
[2020-02-05] MEDS: Multivit, Therapeutic 1 TAB PO SCH (08:21)
[2020-02-05] MEDS: Ferrous Sulfate 325 MG TAB PO SCH ×2 (08:21→16:59)
[2020-02-05] MEDS: Thiamine 100 MG TAB PO SCH (08:21)
[2020-02-05] MEDS: Donepezil HCl 10 MG TAB PO SCH (08:21)
[2020-02-05] MEDS: Citalopram 20 MG TAB PO SCH (08:21)
[2020-02-05] MEDS: risperiDONE 0.5 MG TAB PO SCH ×2 (08:23→21:05)
[2020-02-05 14:42] LABS: Bilirubin Negative (Negative); Blood, Urine Negative (Negative); Clarity Clear (Clear); Glucose, Urine (Dipstick) Negative (Negative); Ketone, Urine Negative (Negative); Leukocyte Negative (Negative); Nitrite Negative (Negative); Protein, Urine (Dipstick) Negative (Neg-Trace); Urobilinogen > or = 8.0 mg/dL (Less than 2)
[2020-02-05 15:08] LABS: Urine Culture Reflex No No
[2020-02-05] MEDS: ALPRAZolam 0.25 MG TAB PO PRN (15:09)
[2020-02-05 15:10] LABS: Bacteria/HPF Rare-Few HPF (None Seen); RBC/HPF 0-3 HPF (0-3); Squamous Epithelial 0-3 HPF (0-3); WBC/HPF 0-3 HPF (0-3)
[2020-02-05] MEDS: traMADol HCl 50 MG TAB PO PRN (15:10)
[2020-02-05] MEDS ORDERED: traZODone HCl 50 MG TAB PO PRN (20:47)
[2020-02-05] MEDS: Terazosin HCl 5 MG CAP PO SCH (21:06)
[2020-02-05] MEDS: Simvastatin 5 MG TAB PO SCH (21:06)
[2020-02-05] MEDS: Aspirin 325 MG TAB PO SCH (21:08)
[2020-02-06 06:08] LABS: Band 9 % (5-11); Eosinophils 6 % (0-10); Hemoglobin 7.5 g/dL (14.0-18.0); Lymphocytes 9 % (21-51); MDiff Complete? YES; Mean Corpuscular HGB CONC 32.6 g/dL (32.0-36.0); Mean Corpuscular Hemoglobin 31.1 pg (27.0-31.0); Mean Corpuscular Volume 95.5 fL (78.0-98.0); Mean Platelet Volume 6.2 fL (7.4-10.4); Monocytes 4 % (0-10); Neutrophil 72 % (42-75); Platelet Count 394 thou/uL (130-400); Platelet Morphology Comment Appears Adequate; RBC Distribution Width 14.8 % (11.5-14.5); RBC Morphology Normal; White Blood Cell (WBC) Count 11.3 thou/uL (4.8-10.8)
[2020-02-06 06:12] LABS: Anion Gap 12 mmol/L (10-20); BUN (Urea Nitrogen) 14 mg/dL (8.4-25.7); Calc. Creatinine Clearance 84 mL/min (70-130); Carbon Dioxide 24 mmol/L (23-31); Chloride 110 mmol/L (98-107); Estimated GFR-MDRD 89; Glucose 74 mg/dL (83-110); Potassium 4.2 mmol/L (3.5-5.1); Sodium 142 mmol/L (136-145)
[2020-02-06] MEDS: Ferrous Sulfate 325 MG TAB PO SCH ×2 (08:59→16:56)
[2020-02-06] MEDS: Citalopram 20 MG TAB PO SCH (08:59)
[2020-02-06] MEDS: Finasteride 5 MG TAB PO SCH (09:00)
[2020-02-06] MEDS: Cyanocobalamin (Vitamin B-12) 1,000 MCG TAB PO SCH (09:00)
[2020-02-06] MEDS: Donepezil HCl 10 MG TAB PO SCH (09:00)
[2020-02-06] MEDS: Polyethylene Glycol 3350 17 GM Packet PO SCH (09:01)
[2020-02-06] MEDS: Multivit, Therapeutic 1 TAB PO SCH (09:01)
[2020-02-06] MEDS: risperiDONE 0.5 MG TAB PO SCH ×2 (09:01→20:32)
[2020-02-06] MEDS: Thiamine 100 MG TAB PO SCH (09:03)
[2020-02-06] MEDS: ALPRAZolam 0.25 MG TAB PO PRN (10:54)
[2020-02-06] MEDS: Terazosin HCl 5 MG CAP PO SCH (20:32)
[2020-02-06] MEDS: Simvastatin 5 MG TAB PO SCH (20:32)
[2020-02-06] MEDS: Aspirin 325 MG TAB PO SCH (20:33)
[2020-02-07] MEDS: Citalopram 20 MG TAB PO SCH (08:53)
[2020-02-07] MEDS: Ferrous Sulfate 325 MG TAB PO SCH ×2 (08:53→16:22)
[2020-02-07] MEDS: Cyanocobalamin (Vitamin B-12) 1,000 MCG TAB PO SCH (08:53)
[2020-02-07] MEDS: Finasteride 5 MG TAB PO SCH (08:53)
[2020-02-07] MEDS: Donepezil HCl 10 MG TAB PO SCH (08:53)
[2020-02-07] MEDS: Multivit, Therapeutic 1 TAB PO SCH (08:54)
[2020-02-07] MEDS: Thiamine 100 MG TAB PO SCH (08:54)
[2020-02-07] MEDS: risperiDONE 0.5 MG TAB PO SCH (08:57)
[2020-02-07] MEDS: Polyethylene Glycol 3350 17 GM Packet PO SCH (08:58)
[2020-02-07] MEDS: Acetaminophen 325 MG TAB PO PRN (16:22)
[2020-02-07] MEDS: Aspirin 325 MG TAB PO SCH (20:15)
[2020-02-07] MEDS: Simvastatin 5 MG TAB PO SCH (20:15)
[2020-02-07] MEDS: Terazosin HCl 5 MG CAP PO SCH (20:15)
[2020-02-08] MEDS: Acetaminophen 325 MG TAB PO PRN ×2 (02:17→09:46)
[2020-02-08] MEDS: Finasteride 5 MG TAB PO SCH (09:46)
[2020-02-08] MEDS: Donepezil HCl 10 MG TAB PO SCH (09:46)
[2020-02-08] MEDS: Citalopram 20 MG TAB PO SCH (09:46)
[2020-02-08] MEDS: Ferrous Sulfate 325 MG TAB PO SCH ×2 (09:47→17:31)
[2020-02-08] MEDS: Thiamine 100 MG TAB PO SCH (09:47)
[2020-02-08] MEDS: Multivit, Therapeutic 1 TAB PO SCH (09:47)
[2020-02-08] MEDS: Polyethylene Glycol 3350 17 GM Packet PO SCH (09:47)
[2020-02-08] MEDS: Cyanocobalamin (Vitamin B-12) 1,000 MCG TAB PO SCH (09:47)
[2020-02-08] MEDS: ALPRAZolam 0.25 MG TAB PO PRN ×2 (13:08→20:40)
[2020-02-08] MEDS: Aspirin 325 MG TAB PO SCH (20:35)
[2020-02-08] MEDS: Simvastatin 5 MG TAB PO SCH (20:36)
[2020-02-08] MEDS: Terazosin HCl 5 MG CAP PO SCH (20:36)
[2020-02-08] MEDS: traMADol HCl 50 MG TAB PO PRN (20:38)
[2020-02-09] MEDS: Donepezil HCl 10 MG TAB PO SCH (09:06)
[2020-02-09] MEDS: Citalopram 20 MG TAB PO SCH (09:06)
[2020-02-09] MEDS: ALPRAZolam 0.25 MG TAB PO PRN (09:06)
[2020-02-09] MEDS: Ferrous Sulfate 325 MG TAB PO SCH ×2 (09:06→17:44)
[2020-02-09] MEDS: Finasteride 5 MG TAB PO SCH (09:06)
[2020-02-09] MEDS: Thiamine 100 MG TAB PO SCH (09:06)
[2020-02-09] MEDS: Polyethylene Glycol 3350 17 GM Packet PO SCH (09:07)
[2020-02-09] MEDS: Cyanocobalamin (Vitamin B-12) 1,000 MCG TAB PO SCH (09:07)
[2020-02-09] MEDS: Multivit, Therapeutic 1 TAB PO SCH (09:07)
[2020-02-09] MEDS: Aspirin 325 MG TAB PO SCH (21:35)
[2020-02-09] MEDS: Simvastatin 5 MG TAB PO SCH (21:35)
[2020-02-09] MEDS: Terazosin HCl 5 MG CAP PO SCH (21:36)
[2020-02-10] MEDS: Ferrous Sulfate 325 MG TAB PO SCH ×2 (09:40→17:12)
[2020-02-10] MEDS: Donepezil HCl 10 MG TAB PO SCH (09:40)
[2020-02-10] MEDS: Thiamine 100 MG TAB PO SCH (09:40)
[2020-02-10] MEDS: Cyanocobalamin (Vitamin B-12) 1,000 MCG TAB PO SCH (09:40)
[2020-02-10] MEDS: Multivit, Therapeutic 1 TAB PO SCH (09:40)
[2020-02-10] MEDS: Citalopram 20 MG TAB PO SCH (09:40)
[2020-02-10] MEDS: Polyethylene Glycol 3350 17 GM Packet PO SCH (09:41)
[2020-02-10] MEDS: Finasteride 5 MG TAB PO SCH (09:41)
[2020-02-10] MEDS: ALPRAZolam 0.25 MG TAB PO PRN (14:10)
[2020-02-10] MEDS: Acetaminophen 325 MG TAB PO PRN (16:30)
[2020-02-10] MEDS: traMADol HCl 50 MG TAB PO PRN (16:31)
[2020-02-10] MEDS: risperiDONE 0.5 MG TAB PO PRN (18:59)
[2020-02-10] MEDS: Terazosin HCl 5 MG CAP PO SCH (22:06)
[2020-02-10] MEDS: Aspirin 325 MG TAB PO SCH (22:06)
[2020-02-10] MEDS: Simvastatin 5 MG TAB PO SCH (22:07)
[2020-02-11] MEDS: Donepezil HCl 10 MG TAB PO SCH (09:06)
[2020-02-11] MEDS: Ferrous Sulfate 325 MG TAB PO SCH ×2 (09:06→16:29)
[2020-02-11] MEDS: Multivit, Therapeutic 1 TAB PO SCH (09:06)
[2020-02-11] MEDS: Finasteride 5 MG TAB PO SCH (09:06)
[2020-02-11] MEDS: Cyanocobalamin (Vitamin B-12) 1,000 MCG TAB PO SCH (09:06)
[2020-02-11] MEDS: Citalopram 20 MG TAB PO SCH (09:06)
[2020-02-11] MEDS: Thiamine 100 MG TAB PO SCH (09:07)
[2020-02-11] MEDS: Polyethylene Glycol 3350 17 GM Packet PO SCH (09:07)
[2020-02-11] MEDS: traMADol HCl 50 MG TAB PO PRN (09:09)
[2020-02-11] MEDS: ALPRAZolam 0.25 MG TAB PO PRN (21:32)
[2020-02-11] MEDS: Terazosin HCl 5 MG CAP PO SCH (21:33)
[2020-02-11] MEDS: Aspirin 325 MG TAB PO SCH (21:33)
[2020-02-11] MEDS: Simvastatin 5 MG TAB PO SCH (21:33)
[2020-02-12] MEDS: Finasteride 5 MG TAB PO SCH (08:03)
[2020-02-12] MEDS: Cyanocobalamin (Vitamin B-12) 1,000 MCG TAB PO SCH (08:03)
[2020-02-12] MEDS: Multivit, Therapeutic 1 TAB PO SCH (08:03)
[2020-02-12] MEDS: Citalopram 20 MG TAB PO SCH (08:04)
[2020-02-12] MEDS: Ferrous Sulfate 325 MG TAB PO SCH ×2 (08:04→17:23)
[2020-02-12] MEDS: Donepezil HCl 10 MG TAB PO SCH (08:04)
[2020-02-12] MEDS: Thiamine 100 MG TAB PO SCH (08:04)
[2020-02-12] MEDS: Polyethylene Glycol 3350 17 GM Packet PO SCH (08:04)
[2020-02-12] MEDS: ALPRAZolam 0.25 MG TAB PO PRN (14:55)
[2020-02-12] MEDS: risperiDONE 0.5 MG TAB PO PRN (18:23)
[2020-02-12] MEDS: Aspirin 325 MG TAB PO SCH (22:01)
[2020-02-12] MEDS: Terazosin HCl 5 MG CAP PO SCH (22:01)
[2020-02-12] MEDS: Acetaminophen 325 MG TAB PO PRN (22:01)
[2020-02-12] MEDS: Simvastatin 5 MG TAB PO SCH (22:01)
[2020-02-13] MEDS: Polyethylene Glycol 3350 17 GM Packet PO SCH (08:58)
[2020-02-13] MEDS: Donepezil HCl 10 MG TAB PO SCH (09:00)
[2020-02-13] MEDS: Acetaminophen 325 MG TAB PO PRN ×2 (09:00→20:58)
[2020-02-13] MEDS: Thiamine 100 MG TAB PO SCH (09:00)
[2020-02-13] MEDS: Multivit, Therapeutic 1 TAB PO SCH (09:00)
[2020-02-13] MEDS: Ferrous Sulfate 325 MG TAB PO SCH ×2 (09:00→16:35)
[2020-02-13] MEDS: Citalopram 20 MG TAB PO SCH (09:00)
[2020-02-13] MEDS: Finasteride 5 MG TAB PO SCH (09:00)
[2020-02-13] MEDS: Cyanocobalamin (Vitamin B-12) 1,000 MCG TAB PO SCH (09:00)
--- NOTE | 2020-02-13 18:34 | PRG ---
DATE OF SERVICE: 02/13/2020 SUBJECTIVE: The patient was seen and examined at the bedside. No adverse events overnight. The patient has no complaints at this time. Denies any chest pain or shortness of breath. He is currently eating lunch. OBJECTIVE: VITAL SIGNS: Temperature 97.8, pulse 64, respirations 18, oxygen 95% on room air, blood pressure 164/63. GENERAL: The patient is alert and in no distress. HEENT: Normocephalic, atraumatic. Extraocular muscles intact. HEART: Regular rate and rhythm. No murmurs, rubs, or gallops. LUNGS: Clear to auscultation bilaterally. EXTREMITIES: Normal bulk and tone. No peripheral edema. SKIN: Left lateral thigh wound incision covered with bandage. No rashes or lesions. ASSESSMENT: 1. Aftercare status post left hip surgery. 2. Left intertrochanteric femur fracture, status post fall. 3. Dementia. 4. Depression and anxiety. 5. Dysphagia. 6. Hypertension. 7. Dyslipidemia. PLAN: Continue physical therapy and occupational therapy. The patient's ro are still in place. We will check with Orthopedics to inquire about staple removal. Continue pain management as needed. Regarding dementia with behavioral disturbances, risperidone 0.25 mg twice daily p.r.n. was initiated, which the patient has only needed twice over the last several days. We will continue to try to provide re-orientation as first-line measures to treat behavioral disturbances. The remainder of the patient's home medications to be continued. Continue close monitoring. Job ID: [id number]
[2020-02-13] MEDS: Terazosin HCl 5 MG CAP PO SCH (20:57)
[2020-02-13] MEDS: Simvastatin 5 MG TAB PO SCH (20:57)
[2020-02-13] MEDS: Aspirin 325 MG TAB PO SCH (20:58)
[2020-02-13] MEDS: risperiDONE 0.5 MG TAB PO PRN (22:43)
[2020-02-14] MEDS: Acetaminophen 325 MG TAB PO PRN (02:08)
[2020-02-14] MEDS: ALPRAZolam 0.25 MG TAB PO PRN ×2 (02:37→17:55)
[2020-02-14] MEDS: Ferrous Sulfate 325 MG TAB PO SCH ×2 (08:40→16:49)
[2020-02-14] MEDS: Citalopram 20 MG TAB PO SCH (08:41)
[2020-02-14] MEDS: Finasteride 5 MG TAB PO SCH (08:42)
[2020-02-14] MEDS: Donepezil HCl 10 MG TAB PO SCH (08:42)
[2020-02-14] MEDS: Multivit, Therapeutic 1 TAB PO SCH (08:42)
[2020-02-14] MEDS: Cyanocobalamin (Vitamin B-12) 1,000 MCG TAB PO SCH (08:42)
[2020-02-14] MEDS: Polyethylene Glycol 3350 17 GM Packet PO SCH (08:43)
[2020-02-14] MEDS: Thiamine 100 MG TAB PO SCH (08:43)
[2020-02-14] MEDS: traMADol HCl 50 MG TAB PO PRN (17:54)
[2020-02-14] MEDS: Aspirin 325 MG TAB PO SCH (20:45)
[2020-02-14] MEDS: Simvastatin 5 MG TAB PO SCH (20:45)
[2020-02-14] MEDS: Terazosin HCl 5 MG CAP PO SCH (20:46)
[2020-02-15] MEDS: risperiDONE 0.5 MG TAB PO PRN (00:38)
[2020-02-15] MEDS: Multivit, Therapeutic 1 TAB PO SCH (08:33)
[2020-02-15] MEDS: Citalopram 20 MG TAB PO SCH (08:33)
[2020-02-15] MEDS: Donepezil HCl 10 MG TAB PO SCH (08:34)
[2020-02-15] MEDS: Polyethylene Glycol 3350 17 GM Packet PO SCH (08:34)
[2020-02-15] MEDS: Thiamine 100 MG TAB PO SCH (08:34)
[2020-02-15] MEDS: Cyanocobalamin (Vitamin B-12) 1,000 MCG TAB PO SCH (08:34)
[2020-02-15] MEDS: Ferrous Sulfate 325 MG TAB PO SCH ×2 (08:34→17:44)
[2020-02-15] MEDS: Finasteride 5 MG TAB PO SCH (08:34)
[2020-02-15] MEDS: Aspirin 325 MG TAB PO SCH (21:38)
[2020-02-15] MEDS: Simvastatin 5 MG TAB PO SCH (21:38)
[2020-02-15] MEDS: traMADol HCl 50 MG TAB PO PRN (21:38)
[2020-02-15] MEDS: Terazosin HCl 5 MG CAP PO SCH (21:38)
[2020-02-16] MEDS: Finasteride 5 MG TAB PO SCH (08:57)
[2020-02-16] MEDS: Citalopram 20 MG TAB PO SCH (08:57)
[2020-02-16] MEDS: Ferrous Sulfate 325 MG TAB PO SCH ×2 (08:57→17:18)
[2020-02-16] MEDS: Multivit, Therapeutic 1 TAB PO SCH (08:58)
[2020-02-16] MEDS: Cyanocobalamin (Vitamin B-12) 1,000 MCG TAB PO SCH (08:58)
[2020-02-16] MEDS: Donepezil HCl 10 MG TAB PO SCH (08:58)
[2020-02-16] MEDS: Thiamine 100 MG TAB PO SCH (08:58)
[2020-02-16] MEDS: Polyethylene Glycol 3350 17 GM Packet PO SCH (08:59)
[2020-02-16 14:28] VITALS: BMI 24.8
[2020-02-16] MEDS: ALPRAZolam 0.25 MG TAB PO PRN (17:39)
[2020-02-16] MEDS: Aspirin 325 MG TAB PO SCH (20:05)
[2020-02-16] MEDS: Terazosin HCl 5 MG CAP PO SCH (20:05)
[2020-02-16] MEDS: Simvastatin 5 MG TAB PO SCH (20:07)
[2020-02-17] MEDS: traMADol HCl 50 MG TAB PO PRN (01:30)
[2020-02-17] MEDS: Donepezil HCl 10 MG TAB PO SCH (08:26)
[2020-02-17] MEDS: Citalopram 20 MG TAB PO SCH (08:26)
[2020-02-17] MEDS: Ferrous Sulfate 325 MG TAB PO SCH ×2 (08:26→16:56)
[2020-02-17] MEDS: Multivit, Therapeutic 1 TAB PO SCH (08:27)
[2020-02-17] MEDS: Cyanocobalamin (Vitamin B-12) 1,000 MCG TAB PO SCH (08:27)
[2020-02-17] MEDS: Thiamine 100 MG TAB PO SCH (08:27)
[2020-02-17] MEDS: Finasteride 5 MG TAB PO SCH (08:27)
[2020-02-17] MEDS: Polyethylene Glycol 3350 17 GM Packet PO SCH (08:27)
[2020-02-17] MEDS: ALPRAZolam 0.25 MG TAB PO PRN (12:09)
[2020-02-17] MEDS: Terazosin HCl 5 MG CAP PO SCH (20:47)
[2020-02-17] MEDS: Aspirin 325 MG TAB PO SCH (20:47)
[2020-02-17] MEDS: Simvastatin 5 MG TAB PO SCH (20:47)
[2020-02-18] MEDS ORDERED: traMADol HCl 50 MG TAB PO PRN (07:51)
[2020-02-18] MEDS: traMADol HCl 50 MG TAB PO PRN ×3 (08:10→22:10)
[2020-02-18] MEDS: Ferrous Sulfate 325 MG TAB PO SCH ×2 (08:11→17:16)
[2020-02-18] MEDS: Multivit, Therapeutic 1 TAB PO SCH (08:11)
[2020-02-18] MEDS: Donepezil HCl 10 MG TAB PO SCH (08:11)
[2020-02-18] MEDS: Citalopram 20 MG TAB PO SCH (08:11)
[2020-02-18] MEDS: Cyanocobalamin (Vitamin B-12) 1,000 MCG TAB PO SCH (08:11)
[2020-02-18] MEDS: Finasteride 5 MG TAB PO SCH (08:12)
[2020-02-18] MEDS: Thiamine 100 MG TAB PO SCH (08:12)
[2020-02-18] MEDS: Polyethylene Glycol 3350 17 GM Packet PO SCH (08:12)
[2020-02-18] MEDS: ALPRAZolam 0.25 MG TAB PO PRN (12:14)
[2020-02-18] MEDS: Acetaminophen 325 MG TAB PO PRN (12:14)
[2020-02-18] MEDS: Simvastatin 5 MG TAB PO SCH (20:19)
[2020-02-18] MEDS: Aspirin 325 MG TAB PO SCH (20:19)
[2020-02-18] MEDS: Terazosin HCl 5 MG CAP PO SCH (20:19)
[2020-02-19] MEDS: Thiamine 100 MG TAB PO SCH (08:03)
[2020-02-19] MEDS: Ferrous Sulfate 325 MG TAB PO SCH ×2 (08:03→17:02)
[2020-02-19] MEDS: Finasteride 5 MG TAB PO SCH (08:03)
[2020-02-19] MEDS: Citalopram 20 MG TAB PO SCH (08:03)
[2020-02-19] MEDS: Multivit, Therapeutic 1 TAB PO SCH (08:04)
[2020-02-19] MEDS: traMADol HCl 50 MG TAB PO PRN ×2 (08:04→14:36)
[2020-02-19] MEDS: Donepezil HCl 10 MG TAB PO SCH (08:04)
[2020-02-19] MEDS: Polyethylene Glycol 3350 17 GM Packet PO SCH (08:04)
[2020-02-19] MEDS: Cyanocobalamin (Vitamin B-12) 1,000 MCG TAB PO SCH (08:04)
[2020-02-19] MEDS: Acetaminophen 325 MG TAB PO PRN (17:03)
[2020-02-19] MEDS: Terazosin HCl 5 MG CAP PO SCH (20:35)
[2020-02-19] MEDS: Simvastatin 5 MG TAB PO SCH (20:40)
[2020-02-19] MEDS: Aspirin 325 MG TAB PO SCH (20:40)
[2020-02-19] MEDS: risperiDONE 0.5 MG TAB PO PRN (21:48)
[2020-02-20] MEDS: Ferrous Sulfate 325 MG TAB PO SCH ×2 (07:45→17:49)
[2020-02-20] MEDS: Citalopram 20 MG TAB PO SCH (09:30)
[2020-02-20] MEDS: Cyanocobalamin (Vitamin B-12) 1,000 MCG TAB PO SCH (09:31)
[2020-02-20] MEDS: Finasteride 5 MG TAB PO SCH (09:31)
[2020-02-20] MEDS: Multivit, Therapeutic 1 TAB PO SCH (09:31)
[2020-02-20] MEDS: Donepezil HCl 10 MG TAB PO SCH (09:31)
[2020-02-20] MEDS: Thiamine 100 MG TAB PO SCH (09:32)
[2020-02-20] MEDS: Polyethylene Glycol 3350 17 GM Packet PO SCH (09:32)
[2020-02-20] MEDS: traMADol HCl 50 MG TAB PO PRN ×2 (11:16→18:24)
[2020-02-20] MEDS: Terazosin HCl 5 MG CAP PO SCH (21:35)
[2020-02-20] MEDS: risperiDONE 0.5 MG TAB PO SCH (21:36)
[2020-02-20] MEDS: ALPRAZolam 0.25 MG TAB PO PRN (21:36)
[2020-02-20] MEDS: Aspirin 325 MG TAB PO SCH (21:36)
[2020-02-20] MEDS: Simvastatin 5 MG TAB PO SCH (21:36)
[2020-02-21 07:21] LABS: #Basophils 0.1 thou/uL (0.0-0.2); #Lymphocytes 1.6 thou/uL (1.20-3.40); #Monocytes 0.8 thou/uL (0.11-0.59); #Neutrophils 4.6 thou/uL (1.40-6.50); %Basophils 1.6 % (0.0-1.0); %Eosinophils 12.4 % (0.0-10.0); %Lymphocytes 19.4 % (21.0-51.0); %Monocytes 9.9 % (0.0-10.0); %Neutrophils 56.7 % (42.0-75.0); Hemoglobin 8.6 g/dL (14.0-18.0); Mean Corpuscular HGB CONC 30.7 g/dL (32.0-36.0); Mean Corpuscular Volume 97.9 fL (78.0-98.0); Mean Platelet Volume 6.3 fL (7.4-10.4); Platelet Count 268 thou/uL (130-400); RBC Distribution Width 14.7 % (11.5-14.5); Red Blood Cell (RBC) Count 2.85 mill/uL (4.70-6.10); White Blood Cell (WBC) Count 8.2 thou/uL (4.8-10.8)
[2020-02-21] MEDS: Thiamine 100 MG TAB PO SCH (08:23)
[2020-02-21] MEDS: traMADol HCl 50 MG TAB PO PRN (08:23)
[2020-02-21] MEDS: Finasteride 5 MG TAB PO SCH (08:25)
[2020-02-21] MEDS: Cyanocobalamin (Vitamin B-12) 1,000 MCG TAB PO SCH (08:25)
[2020-02-21] MEDS: Ferrous Sulfate 325 MG TAB PO SCH (08:25)
[2020-02-21] MEDS: Multivit, Therapeutic 1 TAB PO SCH (08:25)
[2020-02-21] MEDS: risperiDONE 0.5 MG TAB PO SCH (08:25)
[2020-02-21] MEDS: Polyethylene Glycol 3350 17 GM Packet PO SCH (08:26)
[2020-02-21 11:35] VITALS: BP 90/55; TEMP 98.8
[2020-02-21] MEDS ORDERED: Citalopram 20 MG TAB PO SCH (21:00)
--- NOTE | 2020-02-22 13:43 | DIS ---
DATE OF ADMISSION: 01/30/2020 DATE OF DISCHARGE: 02/21/2020 PRIMARY CARE PHYSICIAN: LISANDRO. ORTHOPEDIC PHYSICIAN: Irving Lisa MD. REASON FOR ADMISSION: Skilled Rehab in [facility]. FINAL DIAGNOSES: 1. Left intertrochanteric fracture status post fall, unknown etiology with prolonged downtime. 2. Left intertrochanteric femur fracture status post left trochanteric fixation nail on 01/20/2020. 3. Acute anemia of postoperative blood loss. 4. Dementia mixed vascular and Alzheimer's, late onset. 5. Dementia with behavioral disturbances. 6. Dysphagia in oral phase, improved. 7. Unsteady gait. 8. Physical deconditioning. 9. General weakness. 10. At risk for fall, history of falling. 11. History of chronic alcohol use. SECONDARY DIAGNOSES: 1. Hypertension. 2. Dyslipidemia. 3. Benign prostatic hyperplasia. CONDITION ON DISCHARGE: Stable. DISPOSITION: [facility] per family's request. MEDICATIONS: 1. Acetaminophen 650 mg p.o. q.6 hours p.r.n. 2. Alprazolam 0.25 mg p.o. q.i.d. p.r.n. 3. Aspirin 325 mg p.o. at bedtime. 4. Citalopram 40 mg p.o. at bedtime. 5. Cyanocobalamin 1000 mg p.o. daily. 6. Ferrous sulfate 325 mg p.o. b.i.d. 7. Finasteride 5 mg p.o. daily. 8. Multivitamin 1 tablet p.o. daily. 9. Polyethylene glycol 17 g p.o. at bedtime. 10. Risperidone 0.25 mg p.o. b.i.d. 11. Simvastatin 5 mg p.o. at bedtime. 12. Terazosin 10 mg p.o. at bedtime. 13. Thiamine 100 mg p.o. daily. 14. Tramadol 50 mg 1-2 tablets q.6 hours p.r.n. HISTORY OF THE PRESENT ILLNESS AND HOSPITAL COURSE: Mr. Das is an 79-year-old male with significant history of dementia, unsteadiness of gait, and history of falls at home secondary to confusion and poor safety awareness. The patient had another fall on 01/26/2020 at home and was sent to [place] [facility] initially for further evaluation. The patient's family reported to the EMS that they found the patient on the ground the night before and they are unsure of the cause of the fall. It was unknown how long the patient had been on the floor before the EMS got to orange picker the patient and transferred the patient subsequently to the ER. On further examination, patient was found to have a closed fracture of the left intertrochanteric femur. He underwent trochanteric fixation nail to left intertrochanteric femur, which was done by Dr. Lisa on 01/26/2020. Given the history of CVA/TIA, CT of the brain was obtained at that time and showed no evidence of acute intracranial process. Postoperatively, there was reported significant anemia with hemoglobin down to 7.5. The patient remained generally weak postoperatively and was deemed to benefit further with skilled rehab prior to going back to the home environment. The patient was then transferred to [facility] per family's request. During rehab course, the patient was noted to be significantly confused. This was associated with behavioral disturbances in the form of sundowning behaviors. The patient was initially on pureed diet when admitted. The patient was evaluated and worked with PT, OT and ST. His diet was subsequently advanced to regular. He did not make significant improvement with overall functional mobility during his stay in [facility] secondary to main barrier of confusion. Therapist report the patient is very inconsistent with participation and cooperativeness with the therapy. There are times that he would be able to comprehend and follow instructions, but there are times that he would not. Prior to discharge, the patient was only walking 4 feet using a rolling walker with so much verbal cuing. He has very poor safety awareness and tries to get up and out of bed on his own despite the reminders. The patient was also reported to have inconsistencies with sleeping mostly at night. He is also inconsistent with overall oral consumption between 25% to 75%. Patient sometimes refused to eat as he does not feel to be hungry. We had a lengthy discussion with the family consisting of his spouse, Mariah Das, who is the surrogate decision maker and his son, Tacho Das, both have been very involved in the patient's care. Family was well aware of the above behaviors and overall poor potential with rehab. The patient had reached his max potential in therapy and was recommended for possible long-term care. I had telephone discussions on different occasions with the family and all the resources were explored and offered. There was also concern of palliative care with hospice that was open that was explored by the family. After several discussions, family reported that they could not take care of the patient at home due to higher level of care and patient's functional mobility requires 24/7 care. The family then decided to transfer the patient to [facility] on 02/21/2020. Job ID: [id number]
== END 2020-02-21 14:32 | DRG 560 ==
LOC: MADMS 15:40
PROVIDERS: ADMIT Family Medicine; ATTEND Family Medicine
DX: S72.142D Displaced intertrochanteric fracture of left femur, subsequent encounter for closed fracture with routine healing (principal); D62 Acute posthemorrhagic anemia; F02.81 Dementia in other diseases classified elsewhere, unspecified severity, with behavioral disturbance; F01.51 Vascular dementia, unspecified severity, with behavioral disturbance; R26.81 Unsteadiness on feet; W19.XXXD Unspecified fall, subsequent encounter; G30.1 Alzheimer's disease with late onset; N40.0 Benign prostatic hyperplasia without lower urinary tract symptoms; I10 Essential (primary) hypertension; F41.9 Anxiety disorder, unspecified; E78.5 Hyperlipidemia, unspecified; R13.10 Dysphagia, unspecified; F32.9 Major depressive disorder, single episode, unspecified; Z91.81 History of falling; Z86.73 Personal history of transient ischemic attack (TIA), and cerebral infarction without residual deficits; Z79.82 Long term (current) use of aspirin
CPT/HCPCS: 36415; 80048; 81001; 85007; 85025; 85027

== ENCOUNTER 2020-03-14 14:18 | Outpatient (CLI) | payer MEDICARE ==
--- NOTE | 2020-03-14 15:01 | RAD ---
LEFT HIP 2 VIEWS: HISTORY: Hip pain. COMPARISON: Comparison is made to recent intraoperative films of 01/27/2020. Those films were taken during inter nal fixation of left hip fracture and intratrochanteric region. FINDINGS: Hardware is unchanged in position. Intramedullary patricio and femoral neck pin again noted. Fragments s how no significant change in position or alignment. Avulsion of the lesser trochanter again noted. Degenerative change at the hip. The pelvis appears intact. IMPRESSION: Postoperative changes from prior internal fixation of left hip fracture again noted. No acute interv al change apparent. POS: AGW
== END 2020-03-14 14:19 | disposition home or self-care (01) ==
LOC: MADRAD 14:18
PROVIDERS: ATTEND Orthopaedic Surgery
DX: M25.552 Pain in left hip (principal); Z98.890 Other specified postprocedural states; Z87.81 Personal history of (healed) traumatic fracture